=== PATIENT | female | born 2000 | race Caucasian/White ===

== ENCOUNTER 2022-09-21 00:21 | Emergency (ER) | payer OTHER ==
[~2022-09-21] VITALS: Ht 167.7 cm; Wt 109.0 kg
[2022-09-21 00:29] VITALS: BP 136/98
--- NOTE | 2022-09-21 01:35 | ED General ---
General Chief Complaint: Chest Pain Stated Complaint: CHEST PAIN / ABD PAIN / SOA Nursing Triage Note: PT PRESENTS WITH C/O CHEST PAIN THAT STARTED 2-3 HOURS AGO. SHE REPORTS IT STARTED ABDOMINAL PAIN THAT WENT AWAY AROUND 2230 TONIGHT, AND NOW HAS CHEST PAIN/PRESSURE. PT STATES SHE IS 12 POST COVID DIAGNOSIS Source of Information: Patient History of Present Illness Date Seen by Provider: Sep 21, 2022 Time Seen by Provider: 00:35 Initial Comments PT ARRIVES VIA POV FROM HOME WITH ANOTHER FEMALE STATE AROUND 0 TONIGHT, SHE BEGAN TO FEEL LIKE SHE WAS HAVING ACID REFLUX WITH SOME EPIGASTRIC DISCOMFORT AND BURNING STATES THIS GOT WORSE AND MOVED UP INTO HER CHEST AND INTO HER THROAT AND HAD BURNING/ACID SENSATION IN THE BACK OF HER THROAT TOOK 3 TUMS AT 5 SHE DROVE HERE TO ER AND BY THE TIME SHE PULLED INTO THE PARKING LOT, THE SYMPTOMS HAD RESOLVED, SO SHE WENT BACK HOME. THE SYMPTOMS CAME BACK AGAIN, SO SHE CAME BACK TO ER. SHE STATES THE SYMPTOMS ARE GONE AT THIS TIME SHE STATES SHE FELT SLIGHTLY SHORT OF BREATH WITH IT, BUT NOT NOW NO PAIN WITH BREATHING PT BEGAN HAVING COLD SYMPTOMS LAST Saturday09/09/22. SHE BEGAN RUNNING FEVER AND HAVING A BACK ACHE AND BODY ACHES ON Saturday09/13/22, AND TESTED POSITIVE FOR COVID AT THAT TIME, DID HER FEMALE FRIEND. NO TREATMENT. SHE STATES THOSE SYMPTOMS ARE BETTER NO LONGER HAVING FEVER OR BODY ACHES, AND COLD SYMPTOMS ARE GETTING BETTER. HAS HAD ACID REFLUX SYMPTOMS IN THE PAST, BUT NOT THIS BAD. NO CHRONIC MEDICAL PROBLEMS, AND DOES NOT TAKE ANY DAILY MEDICATIONS LMP--MID AUGUST. NORMAL. NO CONTROL PT IS [employer] ST[employer] FROM [place], [place] Allergies and Home Medications Allergies Coded Allergies: No Known Drug Allergies (Unverified , 09/21/22) Patient Home Medication List Home Medication List Reviewed: Yes Pantoprazole Sodium (Protonix) 40 Mg Tablet.dr, 40 MG PO DAILY Prescribed by: AMY CANTRELL on 09/21/22203 Sucralfate (Carafate) 1 Gram Tablet, 1 GM PO QID Prescribed by: AMY CANTRELL on 09/21/22203 Review of Systems Review of Systems Constitutional: see HPI Respiratory: see HPI Cardiovascular: see HPI Gastrointestinal: see HPI; No constipation, No nausea, No vomiting Genitourinary: no symptoms reported Musculoskeletal: no symptoms reported Skin: no symptoms reported Psychiatric/Neurological: No Symptoms Reported Hematologic/Lymphatic: No Symptoms Reported Immunological/Allergic: no symptoms reported Past Addotlq-Sqxkrd-Rdsdad Hx Past Medical History Last Menstrual Period: Sep 02, 2022 Physical Exam Vital Signs Vital Signs - First Documented 09/21/22 00:29 Temp 36.4 Pulse 97 Resp 16 B/P (MAP) 136/98 (111) Capillary Refill : Less Than 3 Seconds Height, Weight, BMI Height: '" Weight: lbs. oz. kg; 38.00 BMI Method: General Appearance: No Apparent Distress, WD/WN, Other (DOES NOT APPEAR ILL OR TO BE IN ANY DISCOMFORT OR DISTRESS. ) HEENT: PERRL/EOMI, TMs Normal, Normal ENT Inspection, Pharynx Normal Neck: Full Range of Motion, Normal Inspection, Non Tender, Supple Respiratory: Chest Non Tender, Normal Breath Sounds, No Accessory Muscle Use, No Respiratory Distress Cardiovascular: Regular Rate, Rhythm, No Edema, No JVD, No Murmur, Normal Peripheral Pulses Gastrointestinal: Normal Bowel Sounds, No Organomegaly, No Pulsatile Mass, Soft, Tenderness (VERY MILD EPIGASTRIC TENDERNESS) Back: Normal Inspection Extremity: Normal Inspection Neurologic/Psychiatric: Alert, Oriented x3, No Motor/Sensory Deficits, Normal Mood/Affect, welder assistant II-XII Norm as Tested Skin: Normal Color, Warm/Dry; No Rash Progress/Results/Core Measures Suspected Sepsis SIRS Temperature: Pulse: 97 Respiratory Rate: 16 Blood Pressure 136 /98 Mean: 111 Results/Orders Lab Results Laboratory Tests Test 09/21/22 01:38 Range/Units Urine Color YELLOW Urine Clarity CLEAR Urine pH 6.5 5-9 Urine Specific [place] 1.020 1.016-1.022 Urine Protein NEGATIVE NEGATIVE Urine Glucose (UA) NEGATIVE NEGATIVE Urine Ketones NEGATIVE NEGATIVE Urine Nitrite NEGATIVE NEGATIVE Urine Bilirubin NEGATIVE NEGATIVE Urine Urobilinogen 0.2 < = 1.0 MG/DL Urine Leukocyte Esterase NEGATIVE NEGATIVE Urine RBC (Auto) NEGATIVE NEGATIVE Urine RBC NONE /HPF Urine WBC NONE /HPF Urine Squamous Epithelial Cells 2-5 /HPF Urine Crystals NONE /LPF Urine Bacteria FEW H /HPF Urine Casts NONE /LPF Urine Mucus NEGATIVE /LPF Urine Culture Indicated NO My Orders Orders - AMY CANTRELL DO Ekg Tracing (09/21/22 00:34) Urine Bedside (09/21/22 00:38) Ua Culture If Indicated (09/21/22 00:38) Chest 1 View, Ap/Pa Only (09/21/22 01:07) Lidocaine 2% Viscous 15 Ml (Xylocaine Vi (09/21/22 02:15) Antacid Suspension (Mylanta Suspension (09/21/22 02:15) Pantoprazole Injection (Protonix Injecti (09/21/22 02:15) Vital Signs/I&O 09/21/22 00:29 Temp 36.4 Pulse 97 Resp 16 B/P (MAP) 136/98 (111) Capillary Refill : Less Than 3 Seconds Blood Pressure Mean: 111 Progress Note : Progress Note PLACED IN ISOLATION ROOM PPE WORN NO SYMPTOMS FOR REMAINDER OF ER STAY ECG Initial ECG Impression Date: Sep 21, 2022 Initial ECG Impression Time: 00:36 Initial ECG Rate: 71 Initial ECG Rhythm: Normal Sinus Diagnostic Imaging Comments CXR--NO ACUTE PROCESS, PENDING RADIOLOGIST REVIEW Reviewed: Reviewed by Me Departure Impression Primary Impression: GERD SYMPTOMS Additional Impression: COVID-19 Disposition: 01 HOME, SELF-CARE Condition: Improved Departure-Patient Inst. Decision time for Depature: 02:00 Referrals: NO,LOCAL PHYSICIAN (PCP) Primary Care Physician KALLIE DAY MD Patient Instructions: COVID-19 (DC), Preventing the Spread of an Infectious Disease, Acid Reflux and GERD in Adults (DC) Add. Discharge Instructions: HOME, REST. DO NOT LAY FLAT--KEEP HEAD AND UPPER HALF OF BODY ELEVATED AT LEAST 30 DEGREES. LOTS OF CLEAR LIQUIDS--WATER, BROTH, JELLO, GATORADE BRATS DIET--BANANAS, RICE, APPLESAUCE, TOAST, SALTINES FOLLOW UP WITH [facility] IN 2-3 DAYS IF NO IMPROVEMENT, RETURN TO ER IF WORSE All discharge instructions reviewed with patient and/or family. Voiced understanding. Scripts Sucralfate (Carafate) 1 Gram Tablet 1 GM PO QID, #60 TAB Prov: GUY CANTRELLA K DO 09/21/22 Pantoprazole Sodium (Protonix) 40 Mg Tablet.dr 40 MG PO DAILY, #15 TAB Prov: GUY CANTRELLA K DO 09/21/22 GUY CANTRELLA Jose DO Sep 21, 2022 01:35
[2022-09-21 01:45] LABS: BILIRUBIN,URINE NEGATIVE (NEGATIVE); CLARITY,URINE CLEAR; COLOR,URINE YELLOW; GLUCOSE, URINE (UA) NEGATIVE (NEGATIVE); KETONES,URINE NEGATIVE (NEGATIVE); LEUKOCYTE ESTERASE ,URINE NEGATIVE (NEGATIVE); NITRITE,URINE NEGATIVE (NEGATIVE); PH,URINE 6.5 (5-9); PROTEIN,URINE NEGATIVE (NEGATIVE)
[2022-09-21 01:57] LABS: BACTERIA,URINE FEW /HPF
[2022-09-21] MEDS ORDERED: SUCR1TAB36 PO (02:04)
[2022-09-21] MEDS ORDERED: PANT40TA2 PO (02:04)
[2022-09-21] MEDS ORDERED: LIDOCAINE 2% VISCOUS 15 ML UDC PO ONE (02:15)
[2022-09-21] MEDS ORDERED: ANTACID SUSP 30 ML UDC (MYLANTA) PO ONE (02:15)
[2022-09-21] MEDS ORDERED: PANTOPRAZOLE 40 MG (PROTONIX) VIAL IV ONE (02:15)
[2022-09-21] MEDS ORDERED: PANTOPRAZOLE 40 MG (PROTONIX) TAB PO ONE (02:30)
--- NOTE | 2022-09-21 08:06 | Diagnostic Imaging Report ---
INDICATION: Chest pain, Covid positive. COMPARISON: None available. TECHNIQUE: Single frontal radiograph of the chest dated 09/21/2022. FINDINGS: The cardiac silhouette is within normal limits in size. No significant pulmonary vascular congestion. The lungs are clear. No pleural effusion. No pneumothorax. No acute osseous abnormality. IMPRESSION: No acute cardiopulmonary abnormality. Dictated by: Dictated on workstation # [id number]
== END 2022-09-21 02:30 | disposition home or self-care (01) ==
LOC: ER 00:23
DX: U07.1 COVID-19 (principal); R10.13 Epigastric pain; R07.89 Other chest pain; Z28.310 Unvaccinated for COVID-19
CPT/HCPCS: 71045; 81000; 84703; 93005

== ENCOUNTER → 2022-09-26 | Outpatient (CLI) | payer OTHER ==
[~2022-09-26] MED LIST: PANT40TA2 PO; SUCR1TAB36 PO
--- NOTE | 2022-09-26 09:13 | Diagnostic Imaging Report ---
CLINICAL INDICATION: Patient with right upper quadrant pain and elevated liver enzymes. EXAM: Axial CT scan of the abdomen performed without IV contrast or enteric contrast. Sagittal and coronal MIP images were created to better evaluate anatomy. COMPARISON: None. FINDINGS: Visualized lungs are clear. Bones show no significant abnormality. The liver, spleen, pancreas, gallbladder is unremarkable. There is no intrahepatic or extrahepatic ductal dilation. Adrenal glands are unremarkable. Both kidneys are unremarkable. No hydronephrosis, mass, or stone. There is no abdominal ascites or free air seen. Visualized portions of the appendix is unremarkable. There is no intestinal obstruction. There are multiple mildly prominent mesenteric and pericecal lymph nodes seen. Extraabdominal soft tissue structures are unremarkable. IMPRESSION: Multiple mildly prominent mesenteric and pericecal lymph nodes are seen. Otherwise unremarkable CT scan of the abdomen. Dictated by: Dictated on workstation # [id number]
== END ==
LOC: RAD 08:40
PROVIDERS: ATTEND Registered Nurse Critical Care Medicine
DX: R10.11 Right upper quadrant pain (principal); R74.01 Elevation of levels of liver transaminase levels
CPT/HCPCS: 74150